=== PATIENT | male | born 1975 | race Two or more races ===

== ENCOUNTER 2021-11-20 21:23 | Inpatient (IN) | payer MEDICARE, OTHER ==
[~2021-11-20] VITALS: Ht 167.6 cm; Wt 75.3 kg
[2021-11-21 00:15] VITALS: BP 116/68
[2021-11-21 00:30] VITALS: BP 116/68
[2021-11-21] MEDS ORDERED: CEFE1VIA3 IV (00:41)
[2021-11-21] MEDS ORDERED: VANC1.5P36 IV (00:41)
[2021-11-21] MEDS ORDERED: ACETAMINOPHEN 325 MG TABLET PO PRN (01:00)
[2021-11-21] MEDS ORDERED: Z GUARD REMEDY 4 OZ OINT TP PRN (01:00)
[2021-11-21] MEDS ORDERED: MORPHINE SULFATE INJ 2 MG/ML DISP.SYRIN IV PRN (01:00)
[2021-11-21] MEDS ORDERED: MAG HYDROX/AL HYDROX/SIMETH 30 ML UDC PO PRN (01:00)
[2021-11-21] MEDS ORDERED: ZOLPIDEM TARTRATE 5 MG TABLET PO PRN (01:00)
[2021-11-21] MEDS ORDERED: ONDANSETRON HCL/PF 4 MG/2 ML VIAL IVP PRN (01:00)
[2021-11-21] MEDS ORDERED: MAGNESIUM HYDROXIDE 30 ML UDC PO PRN (01:00)
[2021-11-21] MEDS: IV 1/2NS 1000 ML 1,000 ML IV PRN ×2 (03:13→17:55)
--- NOTE | 2021-11-21 03:44 | NUR ---
DIRECT ADMIT NOTES PT ARRIVED VIA TERESA @0013 WITH 2 insurance account manager. DIRECT ADMIT FROM [facility]. AOx4, ABLE TO MAKE NEEDS KNOWN. ON RA AND TOLERATING WELL. NO SOB NOTED. NO S/SX OF RESPIRATORY DISTRESS NOTED. IV ACCESS IN MILVIA MIDLINE, THAT PATIENT ARRIVED WITH. IV IS INTACT, PATENT AND FLUSHING WELL. TELE MONITOR DETECTS SINUS RHYTHM WITH RATE OF 83. SAFETY PRECAUTIONS IN PLACE: BED IN LOWEST, LOCKED POSITION, SIDERAILS UPx2, AND BRAKES ON. TABLE AND CALL LIGHT WITHIN REACH. WILL CONTINUE TO MONITOR.
[2021-11-21 06:21] LABS: BASOPHILS % (AUTO) 0.3 % (0.0-2.0); EOSINOPHILS % (AUTO) 2.2 % (0.0-6.0); HEMATOCRIT 27 % (39-51); HEMOGLOBIN 8.8 g/dL (13.5-17.5); LYMPHOCYTES # (AUTO) 1.1 K/uL (0.8-4.8); LYMPHOCYTES % (AUTO) 16.1 % (20.0-44.0); MEAN CORPUSCULAR HGB CONC 32 g/dl (31.0-36.0); MEAN CORPUSCULAR VOLUME 85 fL (80-96); MONOCYTES # (AUTO) 0.6 K/uL (0.1-1.30); MONOCYTES % (AUTO) 8.3 % (2.0-12.0); NEUTROPHILS # (AUTO) 5.1 K/uL (1.8-8.9); NEUTROPHILS % (AUTO) 73.1 % (43.0-81.0); PLATELET COUNT (AUTO) 515 K/uL (150-450)
--- NOTE | 2021-11-21 06:56 | NUR ---
RN CLOSING NOTES PT IN BED, ASLEEP, AWAKENS TO VERBAL STIMULI.AOx4, ABLE TO MAKE NEEDS KNOWN. ON RA AND TOLERATING WELL. NO SOB NOTED. NO S/SX OF RESPIRATORY DISTRESS NOTED. IV ACCESS IN MILVIA MIDLINE, THAT PATIENT ARRIVED WITH. IV IS INTACT, PATENT AND FLUSHING WELL. TELE MONITOR DETECTS SINUS RHYTHM WITH RATE OF 83. ALL NEEDS MET. PT KEPT CLEAN AND DRY. SAFETY PRECAUTIONS IN PLACE: BED IN LOWEST, LOCKED POSITION, SIDERAILS UPx2, AND BRAKES ON. TABLE AND CALL LIGHT WITHIN REACH. WILL ENDORSE TO ONCOMING SHIFT FOR LAINE.
--- NOTE | 2021-11-21 07:30 | NUR ---
BUYER PLANNER OPENING NOTE PATIENT IS IN BED WITH EYES CLOSED, EASY TO AROUSE. A/O X 4. NO S/SX OF ACUTE DISTRESS NOTED. NO SOB. BREATHING IS EVEN AND UNLABORED, TOLERATING WELL ON ROOM AIR. PT WITH EXTERNAL VAULT TELLER WITH READING OF SINUS RHYTHM 83. IV ACCESS MILVIA MIDLINE PATENT AND INTACT 1/2 NS RUNNING @75MLS/HR. SAFETY MEASURES IN PLACE WITH BED LOCKED AT LOWEST POSITION AND SIDE RAILS UP X2. CALL LIGHT IS WITHIN REACH. WILL CONTINUE TO MONITOR PATIENT THROUGHOUT SHIFT.
[2021-11-21 07:49] LABS: ALBUMIN 1.8 g/dL (3.4-5.0); BILIRUBIN,TOTAL 0.2 mg/dL (0.2-1.0); CALCIUM, SERUM 8.5 mg/dL (8.5-10.1); MAGNESIUM 2.7 mg/dL (1.8-2.4); PHOSPHORUS 3.8 mg/dL (2.5-4.9); POTASSIUM 5.3 mmol/L (3.5-5.1); TOTAL PROTEIN, SERUM 6.9 g/dL (6.4-8.2)
[2021-11-21 08:08] VITALS: BP 96/51
[2021-11-21 08:48] LABS: THYROID STIMULATING HORMONE 3.448 uIU/mL (0.358-3.74)
[2021-11-21] MEDS ORDERED: CEFEPIME 2 GM in IV D5W 100 ML IV SCH (09:00)
[2021-11-21] MEDS ORDERED: HEPARIN SODIUM, PORCINE 5000 UNITS/1 ML VIAL SQ SCH (09:00)
[2021-11-21] MEDS ORDERED: VANCOMYCIN 1.25 GM in IV D5W 250 ML IV ONE (09:00)
[2021-11-21] MEDS: CEFEPIME 2 GM in IV D5W 100 ML IV SCH ×2 (10:02→21:28)
[2021-11-21] MEDS ORDERED: MIDO2.5T PO (10:40)
[2021-11-21] MEDS ORDERED: ASCO-340 PO (10:40)
[2021-11-21] MEDS ORDERED: ERGO500093 PO (10:40)
[2021-11-21] MEDS ORDERED: MULT-24 PO (10:40)
[2021-11-21] MEDS ORDERED: HEPA50008 SQ (10:40)
[2021-11-21] MEDS ORDERED: ZINC50TA69 PO (10:40)
[2021-11-21] MEDS ORDERED: ACET-2605 PO (10:40)
--- NOTE | 2021-11-21 11:53 | NUR ---
WOUND CARE CONSULT: PT STATED THAT HE WOULD LIKE TO REST AT THIS TIME. REVIEWED CHART, NURSING DOCUMENTATION AND PHOTOS WHICH INDICATE MULTIPLE STAGE 4 PRESSURE ULCERS TO SACRUM AND BUTTOCKS AREAS WITH DRY WOUNDS TO LOWER EXTREMITIES, ALL PRESENT ON ADMISSION. SURGICAL AND DPM CONSULTS CALLED TO DR BOOGIE AND DR ESPINOZA. RECOMMENDATIONS MADE FOR SKIN PROTECTION. DISCUSSED WITH NURSING STAFF. FIRST STEP LOW AIRLOSS MATTRESS IS ON ORDER. MD IN AGREEMENT WITH PLAN OF CARE.
[2021-11-21 12:00] VITALS: BP 115/73
--- NOTE | 2021-11-21 13:06 | NUR ---
RN NOTE URINE COLLECTED VIA EPPERSON CATHETER PORT PER DR. ENCARNACION ORDER. SPECIMEN PLACED IN REFRIGERATOR. LAB NOTIFIED.
--- NOTE | 2021-11-21 14:41 | NUR ---
Olaf 313/1 consult for paraplegia and multiple stage 4 pressure ulcers. Pt. Is a 45-year-old male who demonstrates adequate insight to the reason for hospitalization. Pt. was oriented x4, alert, and cooperative. During interview, pt. was capable of following directions, made appropriate eye-contact, and appeared groomed. Pt.s speech was at a normal rate and pt.s mood was elevated. Pt. reported no hx of mental health, substance abuse, suicidal ideation, or homicidal ideation. Pt. denies auditory hallucinations, visual hallucinations, paranoia, or delusions. SW explored pt.s living situation. Per pt., he lives with his brother and nephew [[id number] [place] [address]]. Per EMR, pt. presents with stage 4 pressure ulcers butt and hip. Pt. stated that his nephew, Tree, who is now his caregiver, takes care of pt. at home. Pt. stated that Tree is supportive. Per pt., he used to live in a SNF [[facility]] but did not like it. Pt. stated that he is too young to be living in a SNF. Pt. has no concerns and questions at this time. Plan: SW provided available resources and pt. denied. Upon discharge, per pt., he wants to return home [[id number] [place] [address]]. FELICIANO made an APS report due to self-neglect. APS Intake #[id number]
[2021-11-21] MEDS: PROSOURCE / PROSTAT (PYXIS) 30 ML UDC PO SCH ×2 (15:01→16:05)
[2021-11-21 16:00] VITALS: BP 98/62
[2021-11-21] MEDS: MIDODRINE HCL (5MG) 5 MG TABLET PO SCH (16:20)
--- NOTE | 2021-11-21 18:48 | NUR ---
REGULATORY ASSISTANT CLOSING NOTE PATIENT AWAKE IN BED. NO S/SX OF ACUTE DISTRESS NOTED. NO SOB. BREATHING IS EVEN AND UNLABORED, TOLERATING WELL ON ROOM AIR. PT WITH EXTERNAL FRENCH TEACHER WITH READING OF SINUS RHYTHM . IV ACCESS MILVIA MIDLINE PATENT AND INTACT WITH 1/2 NS RUNNING @75MLS/HR. SAFETY MEASURES MAINTAINED. ALL NEEDS MET THROUGHOUT SHIFT. WOUND TX DONE. CALL LIGHT IS WITHIN REACH. WILL ENDORSE CONTINUITY OF CARE TO ONCOMING SHIFT.
--- NOTE | 2021-11-21 19:42 | NUR ---
RN OPENING NOTES RECIEVED PT LYING IN BED, AWAKE. AOx4, ABLE TO MAKE NEEDS KNOWN. ON RA AND TOLERATING WELL. NO SOB NOTED. NO S/SX OF RESPIRATORY DISTRESS NOTED. IV ACCESS IN MILVIA MIDLINE RUNNING 1/2 NS @ 75 ML/HR. TELE MONITOR DETECTS SINUS RHYTHM WITH RATE OF 81. SAFETY PRECAUTIONS IN PLACE: BED IN LOWEST, LOCKED POSITION, SIDERAILS UPx2, AND BRAKES ON. TABLE AND CALL LIGHT WITHIN REACH. WILL CONTINUE TO MONITOR.
[2021-11-21 20:00] VITALS: BP 114/68
[2021-11-21] MEDS: VANCOMYCIN 1 GM in IV D5W 250 ML IV SCH (20:14)
[2021-11-21] MEDS: HEPARIN SODIUM, PORCINE 5000 UNITS/1 ML VIAL SQ SCH (21:29)
[2021-11-21] MEDS ORDERED: LIDOCAINE 1%-EPI 1:100,000 50 ML VIAL IJ ONE (23:00)
[2021-11-21] MEDS ORDERED: SILVER NITRATE APPLICATOR 1 EA BOX TP PRN (23:00)
[2021-11-22] VITALS: BP 114/69
[2021-11-22 04:00] VITALS: BP 109/71
[2021-11-22 04:20] LABS: BILIRUBIN,URINE NEGATIVE (NEGATIVE); LEUKOCYTE ESTERASE ,URINE TRACE (NEGATIVE); NITRITE, URINE NEGATIVE (NEGATIVE); PROTEIN,URINE NEGATIVE (NEGATIVE); UGLUCOSE NEGATIVE (NEGATIVE); UROBILINOGEN,URINE 0.2 EU/dL (0.2)
[2021-11-22 04:34] LABS: COLOR,URINE LIGHT YELLOW (YELLOW)
[2021-11-22] MEDS: IV 1/2NS 1000 ML 1,000 ML IV PRN ×2 (05:16→20:18)
--- NOTE | 2021-11-22 06:53 | NUR ---
RN CLOSING NOTES PT LYING IN BED, ASLEEP, AWAKENS TO VERBAL STIMULI. AOx4, ABLE TO MAKE NEEDS KNOWN. ON RA AND TOLERATING WELL. NO SOB NOTED. NO S/SX OF RESPIRATORY DISTRESS NOTED. IV ACCESS IN MILVIA MIDLINE RUNNING 1/2 NS @ 75 ML/HR. TELE MONITOR DETECTS SINUS RHYTHM WITH RATE OF 80-90. ALL NEEDS MET. PT KEPT CLEAN AND DRY. PT REFUSED COLOSTOMY CARE AND SHEET CHANGE. SAFETY PRECAUTIONS IN PLACE: BED IN LOWEST, LOCKED POSITION, SIDERAILS UPx2, AND BRAKES ON. TABLE AND CALL LIGHT WITHIN REACH. WILL ENDORSE TO ONCOMING SHIFT FOR LAINE.
[2021-11-22 07:13] LABS: CALCIUM, SERUM 8.5 mg/dL (8.5-10.1); CREATININE 0.8 mg/dL (0.6-1.3); POTASSIUM 4.6 mmol/L (3.5-5.1)
--- NOTE | 2021-11-22 07:15 | NUR ---
VICE PRESIDENT MARKETING & DEVELOPMENT OPENING NOTES RECEIVED PATIENT ON BED, ALERT AND ORIENTED X 4, ABLE TO MAKE NEEDS KNOWN. ON ROOM AIR WITH EQUAL AND UNLABORED BREATHING, TOLERATING WELL. NO SOB NOTED. NO S/SX OF RESPIRATORY DISTRESS NOTED. IV ACCESS IN MILVIA MIDLINE WITH NO SIGNS OF DISTRESS. WITH LEFT UPPER ARM MIDLINE WITH NS RUNNING AT 75 ML/HR INFUSING WELL. PATIENT ON TELE MONITOR DETECTS SINUS RHYTHM WITH RATE OF 80'S. SAFETY PRECAUTIONS IN PLACE WITH BED IN LOWEST, LOCKED POSITION, SIDERAILS UPx2, TABLE AND CALL LIGHT WITHIN REACH. WILL CONTINUE TO MONITOR.
[2021-11-22 07:40] LABS: BACTERIA,URINE None seen /HPF (None Seen); RBC,URINE 15-25 /HPF (0-2); SQUAMOUS EPITHELIAL CELL,UR None Seen /HPF (None Seen); WBC,URINE 15-25 /HPF (0-3)
--- NOTE | 2021-11-22 08:10 | NUR ---
REPLANTER NOTE PATIENT SEEN BY DR. ERAZO. WILL CONTINUE TO MONITOR PATIENT.
[2021-11-22] MEDS: ASCORBIC ACID 500 MG TABLET PO SCH (08:38)
[2021-11-22] MEDS: HEPARIN SODIUM, PORCINE 5000 UNITS/1 ML VIAL SQ SCH ×2 (08:38→21:20)
[2021-11-22] MEDS: MULTIVITAMINS,THERAGRAN 1 UDTAB TABLET PO SCH (08:38)
[2021-11-22] MEDS: MIDODRINE HCL (5MG) 5 MG TABLET PO SCH ×2 (08:39→17:48)
[2021-11-22] MEDS: PROSOURCE / PROSTAT (PYXIS) 30 ML UDC PO SCH ×3 (09:04→17:00)
[2021-11-22] MEDS: VANCOMYCIN 1 GM in IV D5W 250 ML IV SCH ×2 (09:05→21:18)
[2021-11-22 09:15] VITALS: BP 110/69
--- NOTE | 2021-11-22 09:55 | NUR ---
SNUFF GRINDER AND SCREENER NOTE PATIENT REFUSED PROSTAT AND REQUESTED ENSURE FROM THE DOCTOR. WITH MD ORDERS MADE AND CARRIED OUT. WILL CONTINUE TO MONITOR PATIENT.
[2021-11-22] MEDS: CEFEPIME 2 GM in IV D5W 100 ML IV SCH ×2 (10:40→22:20)
--- NOTE | 2021-11-22 12:10 | NUR ---
CHIEF PSYCHOLOGY NOTE WOUND TREATMENT/ DEBRIDEMENT DONE BY NICHELLE UMANA. PROCEDURE TOLERATED WELL. WILL CONTINUE TO MONITOR PATIENT.
[2021-11-22] MEDS: DAKINS QUARTER STRENGTH (0.125%) 480 ML BOTTLE TOP SCH (12:36)
[2021-11-22 16:29] VITALS: BP 125/74
--- NOTE | 2021-11-22 18:46 | NUR ---
LOOM FIXER APPRENTICE CLOSING NOTES RECEIVED PATIENT ON BED, ALERT AND ORIENTED X 4, ABLE TO MAKE NEEDS KNOWN. ON ROOM AIR WITH EQUAL AND UNLABORED BREATHING, TOLERATING WELL. NO SOB NOTED. NO S/SX OF RESPIRATORY DISTRESS NOTED. IV ACCESS IN MILVIA MIDLINE WITH NO SIGNS OF DISTRESS. WITH LEFT UPPER ARM MIDLINE WITH NS RUNNING AT 75 ML/HR INFUSING WELL. PATIENT ON TELE MONITOR DETECTS SINUS RHYTHM WITH RATE OF 80'S. SAFETY PRECAUTIONS IN PLACE WITH BED IN LOWEST, LOCKED POSITION, SIDERAILS UPx2, TABLE AND CALL LIGHT WITHIN REACH. WILL ENDORSE PATIENT FOR CONTINUITY OF CARE.
--- NOTE | 2021-11-22 19:29 | NUR ---
RETAIL SUPPORT ASSOCIATE OPENING NOTES RECEIVED PATIENT IN BED, A/O X 4, ABLE TO MAKE NEEDS KNOWN. PT STABLE ON ROOM AIR. NO SOB OR S/S OF RESPIRATORY DISTRESS. ON EXTERNAL DROP COUNT ASSOCIATE READING SR 80 BPM IV ACCESS MILVIA MIDLINE, INTACT AND PATENT, RUNNING NS @ 75 ML/HR. SAFETY PRECAUTIONS IN PLACE. BED IN LOWEST LOCKED POSITION, HOB ELEVATED, SIDE RAILS UP x2, CALL LIGHT AND TABLE WITHIN REACH. WILL CONTINUE WITH PLAN OF CARE.
[2021-11-22 20:00] VITALS: BP 116/69
[2021-11-23] VITALS: BP 115/63
[2021-11-23 04:00] VITALS: BP 121/62
--- NOTE | 2021-11-23 05:02 | NUR ---
RN NOTE PT REFUSED LINEN CHANGE AND COLOSTOMY BAG CHANGE AT THIS TIME.
--- NOTE | 2021-11-23 06:39 | NUR ---
VICE PRESIDENT TAX CLOSING NOTES PATIENT AWAKE IN BED, A/O X 4, ABLE TO MAKE NEEDS KNOWN. PT STABLE ON ROOM AIR. NO SOB OR S/S OF RESPIRATORY DISTRESS. ON EXTERNAL WELL LOGGING OPERATOR MUD ANALYSIS READING SR-ST 80-108 BPM. IV ACCESS MILVIA MIDLINE, INTACT AND PATENT, RUNNING NS @ 75 ML/HR. COLOSTOMY BAD IN PLACE, PT REFUSED CHANGING. EPPERSON CATHETER IN PLACE DRAINING CLEAR YELLOW URINE, DRAINED 2200 ML THIS SHIFT. DRESSINGS C/D/I. ALL NEEDS MET AT THIS TIME. SAFETY PRECAUTIONS IN PLACE AT ALL TIMES. BED IN LOWEST LOCKED POSITION, HOB ELEVATED, SIDE RAILS UP x2, CALL LIGHT AND TABLE WITHIN REACH. WILL ENDORSE TO ONCOMING SHIFT FOR LAINE.
[2021-11-23 06:43] LABS: BASOPHILS % (AUTO) 0.2 % (0.0-2.0); EOSINOPHILS % (AUTO) 4.3 % (0.0-6.0); HEMATOCRIT 28 % (39-51); HEMOGLOBIN 9.1 g/dL (13.5-17.5); LYMPHOCYTES # (AUTO) 1.2 K/uL (0.8-4.8); LYMPHOCYTES % (AUTO) 13.5 % (20.0-44.0); MEAN CORPUSCULAR HGB CONC 32 g/dl (31.0-36.0); MEAN CORPUSCULAR VOLUME 85 fL (80-96); MONOCYTES % (AUTO) 11.2 % (2.0-12.0); NEUTROPHILS # (AUTO) 6.1 K/uL (1.8-8.9); NEUTROPHILS % (AUTO) 70.8 % (43.0-81.0); PLATELET COUNT (AUTO) 603 K/uL (150-450); RED BLOOD CELL COUNT(AUTO) 3.32 MIL/uL (4.5-6.0); WHITE BLOOD COUNT (AUTO) 8.6 K/uL (4.3-11.0)
--- NOTE | 2021-11-23 07:19 | NUR ---
RN OPENING NOTES- PATIENT IN BED, ASLEEP THOUGH AWAKENS EASILY, A/O X 4, ABLE TO MAKE NEEDS KNOWN. PT STABLE ON ROOM AIR. NO SOB OR S/S OF RESPIRATORY DISTRESS. ON EXTERNAL MEDICAL ONCOLOGIST READING SR 76 BPM. MILVIA MIDLINE, INTACT AND PATENT, RUNNING NS @ 75 ML/HR. SAFETY PRECAUTIONS IN PLACE. BED IN LOWEST LOCKED POSITION, HOB ELEVATED, SIDE RAILS UP x2, CALL LIGHT AND TABLE WITHIN REACH. MONITOR / ASSIST
[2021-11-23 07:51] LABS: CALCIUM, SERUM 8.8 mg/dL (8.5-10.1); CREATININE 0.6 mg/dL (0.6-1.3); POTASSIUM 4.7 mmol/L (3.5-5.1)
[2021-11-23 08:00] VITALS: BP 113/66
[2021-11-23] MEDS: ASCORBIC ACID 500 MG TABLET PO SCH (08:46)
[2021-11-23] MEDS: VANCOMYCIN 1 GM in IV D5W 250 ML IV SCH ×2 (08:46→20:46)
[2021-11-23] MEDS: MIDODRINE HCL (5MG) 5 MG TABLET PO SCH ×2 (08:47→17:00)
[2021-11-23] MEDS: MULTIVITAMINS,THERAGRAN 1 UDTAB TABLET PO SCH (08:47)
[2021-11-23] MEDS: HEPARIN SODIUM, PORCINE 5000 UNITS/1 ML VIAL SQ SCH ×2 (08:48→20:51)
[2021-11-23] MEDS: PROSOURCE / PROSTAT (PYXIS) 30 ML UDC PO SCH ×3 (08:50→17:00)
[2021-11-23] MEDS: DAKINS QUARTER STRENGTH (0.125%) 480 ML BOTTLE TOP SCH (09:01)
[2021-11-23] MEDS: CEFEPIME 2 GM in IV D5W 100 ML IV SCH ×2 (10:24→22:23)
[2021-11-23] MEDS: IV 1/2NS 1000 ML 1,000 ML IV PRN (11:37)
[2021-11-23 12:00] VITALS: BP 109/61
--- NOTE | 2021-11-23 14:00 | NUR ---
RN NOTE- WOUND CARE COMPLETED TO BLE PER ORDERS. TOLERATED WELL.
[2021-11-23 16:00] VITALS: BP 119/69
--- NOTE | 2021-11-23 19:15 | NUR ---
RN CLOSING NOTE- PATIENT IN BED, COLOSTOMY CHANGED, A/O X 4, ABLE TO MAKE NEEDS KNOWN. PT STABLE ON ROOM AIR. NO SOB OR S/S OF RESPIRATORY DISTRESS. ON EXTERNAL PAYROLL CLERK READING SR 80 BPM. MILVIA MIDLINE, INTACT AND PATENT, RUNNING NS @ 75 ML/HR. SAFETY PRECAUTIONS IN PLACE. BED IN LOWEST LOCKED POSITION, HOB ELEVATED, SIDE RAILS UP x2, CALL LIGHT AND TABLE WITHIN REACH. MONITOR / ASSIST
--- NOTE | 2021-11-23 19:50 | NUR ---
ASSEMBLY LOADER OPENING NOTE PATIENT AWAKE IN BED, ALERT/ORIENTED X 4, PT ABLE TO MAKE NEEDS KNOWN. PATIENT DENIES PAIN AT THIS TIME. PT STABLE ON RA, NO S/S OF DISTRESS OR SOB NOTED, BREATHING EVEN AND UNLABORED. PT ON EXTERNAL HORTICULTURE WORKER READING SINUS TACHY, HR: 110. LEFT UPPER ARM MIDLINE INTACT AND RUNNING 1/2 NS @ 75 ML/HR. COLOSTOMY BAG IN PLACE. SAFETY MEASURES IN PLACE: CALL LIGHT WITHIN REACH, SIDE RAILS UP X 2, BED LOCKED IN LOW POSITION, HOB ELEVATED, BED ALARM ON. WILL CONTINUE TO MONITOR PATIENT
[2021-11-23 20:00] VITALS: BP 114/66
[2021-11-24] VITALS: BP 113/67
[2021-11-24] MEDS: IV 1/2NS 1000 ML 1,000 ML IV PRN ×2 (01:29→16:47)
[2021-11-24 05:00] VITALS: BP 107/58
--- NOTE | 2021-11-24 06:00 | NUR ---
SUPERVISOR ENGINE ASSEMBLY NOTE PATIENT REFUSED 4 AM VITAL SIGNS AND COLOSTOMY BAG CHANGE
[2021-11-24 06:41] LABS: BASOPHILS % (AUTO) 0.2 % (0.0-2.0); EOSINOPHILS % (AUTO) 3.9 % (0.0-6.0); HEMATOCRIT 29 % (39-51); HEMOGLOBIN 9.4 g/dL (13.5-17.5); LYMPHOCYTES # (AUTO) 1.3 K/uL (0.8-4.8); LYMPHOCYTES % (AUTO) 15.2 % (20.0-44.0); MEAN CORPUSCULAR HGB CONC 32 g/dl (31.0-36.0); MEAN CORPUSCULAR VOLUME 85 fL (80-96); MONOCYTES # (AUTO) 0.9 K/uL (0.1-1.30); MONOCYTES % (AUTO) 10.3 % (2.0-12.0); NEUTROPHILS % (AUTO) 70.4 % (43.0-81.0); PLATELET COUNT (AUTO) 652 K/uL (150-450); RED BLOOD CELL COUNT(AUTO) 3.47 MIL/uL (4.5-6.0); WHITE BLOOD COUNT (AUTO) 8.5 K/uL (4.3-11.0)
--- NOTE | 2021-11-24 07:02 | NUR ---
INTERIOR MECHANIC CLOSING NOTES PATIENT SLEEPING IN BED, NO SIGNIFICANT CHANGES THROUGHOUT SHIFT. PT STABLE ON RA, NO S/S OF DISTRESS OR SOB NOTED, BREATHING EVEN AND UNLABORED. PT ON EXTERNAL BOILER WATER TESTER READING SINUS RHYTHM, HR: 87. LEFT UPPER ARM MIDLINE INTACT AND INFUSING 1/2 NS @ 75 ML/HR. EPPERSON CATH IN PLACE AND DRAINING CLEAR YELLOW URINE, OUTPUT OF 800 ML. COLOSTOMY BACK IN PLACE. SAFETY MEASURES IN PLACE: CALL LIGHT WITHIN REACH, SIDE RAILS UP X 2, BED LOCKED IN LOW POSITION, HOB ELEVATED, BED ALARM ON. WILL ENDORSE TO DAY SHIFT NURSE FOR CONTINUITY OF CARE
[2021-11-24 07:05] LABS: CALCIUM, SERUM 8.9 mg/dL (8.5-10.1); CREATININE 0.6 mg/dL (0.6-1.3); POTASSIUM 4.3 mmol/L (3.5-5.1)
--- NOTE | 2021-11-24 07:26 | NUR ---
BRAND DEVELOPMENT MANAGER OPENING NOTES RECEIVED PATIENT ASLEEP IN BED, EASILY AWAKENS. PT IS A/O X4, ABLE TO MAKE NEEDS KNOWN, DENIES PAIN OR ANY DISCOMFORTS AT THIS TIME. ON ROOM AIR, BREATHING EVENLY AND UNLABORED. MILVIA MIDLINE PATENT AND INTACT WITH IVF OF NS @75ML/HR INFUSING WELL. ON TELE MONITORING WITH CURRENT READING OF NSR , HR 97, NO C/O CARDIAC DISTRESS VOICED AT THIS TIME. COLOSTOMY IN PLACE, NO STOOLS NOTED AT THIS TIME. EPPERSON CATHETER IN PLACE DRAINING CLEAR YELLOW URINE VIA GRAVITY TO BEDSIDE DRAINAGE BAG. SAFETY AND FALL MEASURES IN PLACE: BED ALARM ON, BED IN LOWEST LOCKED POSITION, SIDE-RAILS UP X2 AND CALL LIGHT WITHIN REACH. WILL CONTINUE TO MONITOR PT ACCORDINGLY.
[2021-11-24 08:00] VITALS: BP 129/67
[2021-11-24] MEDS: MULTIVITAMINS,THERAGRAN 1 UDTAB TABLET PO SCH (08:36)
[2021-11-24] MEDS: MIDODRINE HCL (5MG) 5 MG TABLET PO SCH ×2 (08:38→16:16)
[2021-11-24] MEDS: VANCOMYCIN 1 GM in IV D5W 250 ML IV SCH (08:38)
[2021-11-24] MEDS: ASCORBIC ACID 500 MG TABLET PO SCH (08:38)
[2021-11-24] MEDS: HEPARIN SODIUM, PORCINE 5000 UNITS/1 ML VIAL SQ SCH ×2 (08:39→21:40)
[2021-11-24] MEDS: DAKINS QUARTER STRENGTH (0.125%) 480 ML BOTTLE TOP SCH (08:40)
[2021-11-24] MEDS: PROSOURCE / PROSTAT (PYXIS) 30 ML UDC PO SCH (08:44)
[2021-11-24] MEDS: CEFEPIME 2 GM in IV D5W 100 ML IV SCH (09:49)
[2021-11-24] MEDS: ENSURE ENLIVE 237 ML LIQUID (VANILLA) PO SCH ×2 (13:00→17:13)
[2021-11-24 16:00] VITALS: BP 107/62
--- NOTE | 2021-11-24 18:53 | NUR ---
SECOND BAKER CLOSING NOTES PATIENT AWAKE AND WATCHING TV IN BED AT THIS TIME. A/O X4, ABLE TO MAKE NEEDS KNOWN. ON ROOM AIR, BREATHING EVENLY AND UNLABORED. MILVIA MIDLINE PATENT AND INTACT WITH IVF OF 1/2NS @75ML/HR INFUSING WELL. ON TELE MONITORING WITH CURRENT READING OF NSR-ST , HR 80-110 DURING SHIFT, NO C/O CARDIAC DISTRESS VOICED. COLOSTOMY IN PLACE, STOOLS NOTED SOFT BROWNISH CONSISTENCY. EPPERSON CATHETER IN PLACE DRAINING CLEAR YELLOW URINE VIA GRAVITY TO BEDSIDE DRAINAGE BAG, EPPERSON CARE DONE. ALL NEEDS AND CARE PROVIDED WELL. SAFETY AND FALL MEASURES KEPT IN PLACED: BED ALARM ON, BED IN LOWEST LOCKED POSITION, SIDE-RAILS UP X2 AND CALL LIGHT WITHIN REACH. WILL ENDORSE LAINE TO DIRECTOR OF ORTHOPEDICS NURSE.
--- NOTE | 2021-11-24 19:20 | NUR ---
TELE/RN OPENING NOTE RECEIVED PATIENT RESTING IN BED. AWAKE, ALERT AND ORIENTED X 4. ABLE TO MAKE NEEDS KNOWN. DENIES PAIN AT THIS TIME. CONTINUES ON ROOM AIR WITH NO S/SX OF RESPIRATORY DISTRESS NOTED. IV ACCESS TO RIGHT UPPER ARM MIDLINE #18G INTACT AND PATENT. CONTINUES ON IVF. EPPERSON CATHETER IN PLACE DRAINING CLEAR, YELLOW URINE. COLOSTOMY INTACT - PATIENT STATES HE WILL NOTIFY NURSING WHEN IT NEEDS TO BE EMPTIED. MULTIPLE WOUNDS NOTED WITH DRESSINGS CLEAN, DRY AND INTACT. TELE MONITOR IN PLACE WITH CURRENT READING SR/ST. CALL LIGHT WITHIN REACH. ASPIRATION, FALL AND SAFETY PRECAUTIONS MAINTAINED. WILL CONTINUE TO MONITOR.
[2021-11-24 20:00] VITALS: BP 124/68
[2021-11-25] VITALS: BP 100/61
[2021-11-25 04:00] VITALS: BP 96/52
[2021-11-25] MEDS: IV 1/2NS 1000 ML 1,000 ML IV PRN ×2 (06:13→19:52)
--- NOTE | 2021-11-25 06:20 | NUR ---
TELE/RN CLOSING NOTE PATIENT CURRENTLY SLEEPING IN BED. ALERT AND ORIENTED X 4. ABLE TO MAKE NEEDS KNOWN. DENIES PAIN AT THIS TIME. CONTINUES ON ROOM AIR WITH NO S/SX OF RESPIRATORY DISTRESS NOTED. IV ACCESS TO RIGHT UPPER ARM MIDLINE #18G INTACT AND PATENT. CONTINUES ON IVF 1/ NS @ 75ML/HR. EPPERSON CATHETER IN PLACE DRAINING CLEAR, YELLOW URINE. OUTPUT THIS SHIFT IS 2200ML. COLOSTOMY INTACT - PATIENT STATES HE WILL NOTIFY NURSING WHEN IT NEEDS TO BE EMPTIED. MULTIPLE WOUNDS NOTED WITH DRESSINGS CLEAN, DRY AND INTACT. TELE MONITOR IN PLACE WITH CURRENT READING ST HR 102. CALL LIGHT WITHIN REACH. ASPIRATION, FALL AND SAFETY PRECAUTIONS MAINTAINED. WILL ENDORSE PLAN OF CARE TO ONCOMING SHIFT.
[2021-11-25 07:00] LABS: BASOPHILS % (AUTO) 0.4 % (0.0-2.0); EOSINOPHILS % (AUTO) 3.7 % (0.0-6.0); HEMATOCRIT 28 % (39-51); HEMOGLOBIN 9.4 g/dL (13.5-17.5); LYMPHOCYTES # (AUTO) 1.3 K/uL (0.8-4.8); LYMPHOCYTES % (AUTO) 14.4 % (20.0-44.0); MEAN CORPUSCULAR HGB CONC 33 g/dl (31.0-36.0); MEAN CORPUSCULAR VOLUME 84 fL (80-96); MONOCYTES # (AUTO) 0.9 K/uL (0.1-1.30); MONOCYTES % (AUTO) 9.6 % (2.0-12.0); NEUTROPHILS # (AUTO) 6.6 K/uL (1.8-8.9); NEUTROPHILS % (AUTO) 71.9 % (43.0-81.0); PLATELET COUNT (AUTO) 666 K/uL (150-450); RED BLOOD CELL COUNT(AUTO) 3.37 MIL/uL (4.5-6.0); WHITE BLOOD COUNT (AUTO) 9.2 K/uL (4.3-11.0)
[2021-11-25 07:31] LABS: CREATININE 0.6 mg/dL (0.6-1.3); POTASSIUM 4.2 mmol/L (3.5-5.1)
--- NOTE | 2021-11-25 08:15 | NUR ---
MS RN OPENING NOTES RECEIVED PATIENT LYING IN BED WITH EYES CLOSED. EASY TO AROUSE. A/O X4. NOT IN APPARENT DISTRESS. NO C/O PAIN @ THIS TIME. TOLERATING ROOM AIR WELL. HAS LEFT UPPER ARM MIDLINE #18G WITH 1/2 NS RUNNING @ 75 ML/HR. EPPERSON CATHETER DRAINING CLEAR AND YELLOW URINE. SAFETY PRECAUTIONS IN PLACED. WILL CONTINUE PLAN OF CARE.
[2021-11-25 08:32] VITALS: BP 99/58
[2021-11-25] MEDS: ENSURE ENLIVE 237 ML LIQUID (VANILLA) PO SCH ×2 (08:42→17:37)
[2021-11-25] MEDS ORDERED: ERGOCALCIFEROL (VITAMIN D 2) 50,000 UNIT CAPSULE PO SCH (09:00)
[2021-11-25] MEDS: MIDODRINE HCL (5MG) 5 MG TABLET PO SCH ×2 (09:37→17:40)
[2021-11-25] MEDS: ASCORBIC ACID 500 MG TABLET PO SCH (09:37)
[2021-11-25] MEDS: MULTIVITAMINS,THERAGRAN 1 UDTAB TABLET PO SCH (09:37)
[2021-11-25] MEDS: DAKINS QUARTER STRENGTH (0.125%) 480 ML BOTTLE TOP SCH (09:38)
[2021-11-25] MEDS: HEPARIN SODIUM, PORCINE 5000 UNITS/1 ML VIAL SQ SCH ×2 (09:39→20:36)
[2021-11-25 12:45] VITALS: BP 112/61
[2021-11-25 16:50] VITALS: BP 117/61
--- NOTE | 2021-11-25 16:51 | NUR ---
HOSPICE BEREAVEMENT COORDINATOR NOTES SEEN AND EXAMINED BY REMI LOPEZ. WOUND CLEANED AND PACKED WITH DAKIN'S SOLUTION. COVERED WITH DSG, FOAM.
--- NOTE | 2021-11-25 16:52 | NUR ---
RADIAL ARM SAW OPERATOR NOTES EPPERSON CATHETER CARE DONE. URINE BAG EMPTIED WITH 1200 CC OUTPUT. COLOSTOMY CARE RENDERED. COLOSTOMY BAG CHANGED.
--- NOTE | 2021-11-25 19:20 | NUR ---
STEEL ANALYST CLOSING NOTES PATIENT IN BED REST, A/O X4. STABLE ON ROOM AIR. NO SOB OR . HAS LEFT UPPER ARM MIDLINE WITH 1/2 NS RUNNING @ 75 ML/HR. FLUSHING, PATENT AND INTACT. ALL NEEDS ATTENDED. KEPT DRY AND COMFORTABLE. SAFETY PRECAUTIONS IN PLACED: BED LOW AND LOCKED, SIDE RAILS UP X3, CALL LIGHT WITHIN REACH.
--- NOTE | 2021-11-25 19:45 | NUR ---
MESSAGING ARCHITECT OPENING NOTES PATIENT IN BED REST, A/O X4. STABLE ON ROOM AIR. NO SOB OR . HAS LEFT UPPER ARM MIDLINE WITH 1/2 NS RUNNING @ 75 ML/HR. FLUSHING, PATENT AND INTACT. ALL NEEDS ATTENDED AT THIS TIME. KEPT DRY AND COMFORTABLE. SAFETY PRECAUTIONS IN PLACED: BED LOW AND LOCKED, SIDE RAILS UP X3, CALL LIGHT WITHIN REACH. WILL CONTINUE TO MONITOR
[2021-11-25 20:00] VITALS: BP 137/72
[2021-11-26] VITALS: BP 105/51
[2021-11-26 04:00] VITALS: BP 109/66
[2021-11-26 06:48] LABS: BASOPHILS % (AUTO) 0.5 % (0.0-2.0); EOSINOPHILS % (AUTO) 4.2 % (0.0-6.0); HEMATOCRIT 28 % (39-51); LYMPHOCYTES # (AUTO) 1.4 K/uL (0.8-4.8); LYMPHOCYTES % (AUTO) 17.2 % (20.0-44.0); MEAN CORPUSCULAR HGB CONC 33 g/dl (31.0-36.0); MEAN CORPUSCULAR VOLUME 85 fL (80-96); MONOCYTES # (AUTO) 0.9 K/uL (0.1-1.30); MONOCYTES % (AUTO) 11.3 % (2.0-12.0); NEUTROPHILS # (AUTO) 5.3 K/uL (1.8-8.9); NEUTROPHILS % (AUTO) 66.8 % (43.0-81.0); PLATELET COUNT (AUTO) 615 K/uL (150-450); RED BLOOD CELL COUNT(AUTO) 3.26 MIL/uL (4.5-6.0)
--- NOTE | 2021-11-26 06:50 | NUR ---
EXPERIMENTAL PHYSICIST CLOSING NOTES PATIENT IN BED REST, A/O X4. STABLE ON ROOM AIR. NO SOB . HAS LEFT UPPER ARM MIDLINE WITH 1/2 NS RUNNING @ 75 ML/HR. FLUSHING, PATENT AND INTACT. ALL NEEDS ATTENDED THROUGHOUT THE SHIFT KEPT DRY AND COMFORTABLE. SAFETY PRECAUTIONS IN PLACED: BED LOW AND LOCKED, SIDE RAILS UP X3, CALL LIGHT WITHIN REACH. WILL ENDORSE CARE TO DAY SHIFT NURSE.
[2021-11-26 07:10] LABS: CREATININE 0.7 mg/dL (0.6-1.3); POTASSIUM 4.3 mmol/L (3.5-5.1)
--- NOTE | 2021-11-26 07:25 | NUR ---
FOUNDER OPENING NOTES RECEIVED PATIENT IN BED, ASLEEP, EASILY AROUSED. A/O X4, NO SIGNS OF ACUTE DISTRESS NOTED. ON ROOM AIR, NO SOB NOTED. DENIES ANY PAIN OR DISCOMFORT. ON TELE MONITOR SHOWING SR @62. WITH IV ACCESS ON LEFT UPPER ARM MIDLINE, INTACT AND PATENT, 1/2 NS @75ML/HR RUNNING. F/C INTACT CONNECTED TO DRAINAGE BAG WITH CLEAR YELLOW URINE. COLOSTOMY INTACT. SAFETY MEASURES IN PLACE. BED IN LOWEST LOCKED POSITION, SR UP X2, CALL LIGHT PLACED WITHIN EASY REACH. WILL CONTINUE TO MONITOR PATIENT.
[2021-11-26] MEDS: ENSURE ENLIVE 237 ML LIQUID (VANILLA) PO SCH ×2 (08:31→17:08)
[2021-11-26] MEDS: MIDODRINE HCL (5MG) 5 MG TABLET PO SCH ×2 (08:42→17:08)
[2021-11-26] MEDS: MULTIVITAMINS,THERAGRAN 1 UDTAB TABLET PO SCH (08:42)
[2021-11-26] MEDS: ASCORBIC ACID 500 MG TABLET PO SCH (08:42)
[2021-11-26] MEDS: HEPARIN SODIUM, PORCINE 5000 UNITS/1 ML VIAL SQ SCH ×2 (08:48→20:32)
[2021-11-26] MEDS: DAKINS QUARTER STRENGTH (0.125%) 480 ML BOTTLE TOP SCH (08:49)
[2021-11-26] MEDS: IV 1/2NS 1000 ML 1,000 ML IV PRN ×2 (10:05→22:58)
--- NOTE | 2021-11-26 18:52 | NUR ---
MS RN CLOSING NOTES PATIENT RESTING IN BED. AWAKE, A/O X4, NO SIGNS OF ACUTE DISTRESS NOTED. REMAINS ON ROOM AIR, NO SOB NOTED. DENIES ANY PAIN OR DISCOMFORT. OFFERED NO COMPLAINTS THIS SHIFT. IV ACCESS ON LEFT UPPER ARM MIDLINE, INTACT AND PATENT, 1/2 NS @75ML/HR RUNNING. F/C INTACT CONNECTED TO DRAINAGE BAG WITH CLEAR YELLOW URINE. COLOSTOMY INTACT, HAD SOFT BROWN STOOL. ALL DUE MEDS GIVEN. WOUND TREATMENT DONE ORDERED. SAFETY MEASURES IN PLACE. BED IN LOWEST LOCKED POSITION, SR UP X2, CALL LIGHT PLACED WITHIN EASY REACH. WILL ENDORSE TO NEXT SHIFT.
--- NOTE | 2021-11-26 19:15 | NUR ---
MS RN OPENING NOTES RECEIVED PATIENT LAYING AWAKE IN BED. A/O X4. PATIENT WITH REGULAR AND UNLABORED BREATHING ON ROOM AIR TOLERATED WELL. NO SIGNS OR SYMPTOMS OF DISTRESS NOTED AT THIS TIME. NO COMPLAINS OF PAIN OR DISCOMFORT AT THIS TIME. IV ACCESS MILVIA MIDLINE INFUSING 1/2 NS @ 75 ML/HR. IV ACCESS PATENT AND INTACT. SAFETY PRECAUTIONS ENFORCED WITH BED LOCKED AND AT LOWEST POSITION. CALL LIGHT WITHIN REACH AT ALL TIMES. WILL CONTINUE TO MONITOR PATIENT.
[2021-11-26 20:00] VITALS: BP 118/66
--- NOTE | 2021-11-27 06:44 | NUR ---
MS RN CLOSING NOTES PATIENT STILL LAYING AWAKE IN BED. A/O X4. PATIENT WITH REGULAR AND UNLABORED BREATHING ON ROOM AIR TOLERATED WELL. NO SIGNS OR SYMPTOMS OF DISTRESS NOTED AT THIS TIME. NO COMPLAINS OF PAIN OR DISCOMFORT AT THIS TIME. IV ACCESS MILVIA MIDLINE INFUSING 1/2 NS @ 75 ML/HR. IV ACCESS PATENT AND INTACT. SAFETY PRECAUTIONS ENFORCED WITH BED LOCKED AND AT LOWEST POSITION. CALL LIGHT WITHIN REACH AT ALL TIMES. WILL ENDORSE CONTINUITY OF CARE TO DAY SHIFT NURSE.
[2021-11-27 07:07] LABS: BASOPHILS % (AUTO) 0.5 % (0.0-2.0); EOSINOPHILS % (AUTO) 2.6 % (0.0-6.0); HEMATOCRIT 28 % (39-51); HEMOGLOBIN 9.2 g/dL (13.5-17.5); LYMPHOCYTES # (AUTO) 1.4 K/uL (0.8-4.8); LYMPHOCYTES % (AUTO) 15.5 % (20.0-44.0); MEAN CORPUSCULAR HGB CONC 33 g/dl (31.0-36.0); MEAN CORPUSCULAR VOLUME 83 fL (80-96); MONOCYTES # (AUTO) 0.8 K/uL (0.1-1.30); NEUTROPHILS # (AUTO) 6.5 K/uL (1.8-8.9); NEUTROPHILS % (AUTO) 72.4 % (43.0-81.0); PLATELET COUNT (AUTO) 631 K/uL (150-450); RED BLOOD CELL COUNT(AUTO) 3.33 MIL/uL (4.5-6.0)
[2021-11-27 07:11] LABS: CALCIUM, SERUM 9.1 mg/dL (8.5-10.1); CREATININE 0.6 mg/dL (0.6-1.3); POTASSIUM 4.3 mmol/L (3.5-5.1)
--- NOTE | 2021-11-27 07:30 | NUR ---
MS RN OPENING NOTES RECEIVED PATIENT IN BED, AWAKE, A/O X4. ON ROOM AIR TOLERATED WELL. NO SIGNS OR SYMPTOMS OF DISTRESS NOTED AT THIS TIME. NO COMPLAINS OF PAIN OR DISCOMFORT AT THIS TIME. IV ACCESS MILVIA MIDLINE INFUSING 1/2 NS @ 75 ML/HR. IV ACCESS PATENT AND INTACT, NOP S/SX OF INFILTRATION NOTED. SAFETY PRECAUTIONS ENFORCED WITH BED LOCKED AND AT LOWEST POSITION. CALL LIGHT WITHIN REACH AT ALL TIMES. WILL CONTINUE TO MONITOR PATIENT ACCORDINGLY.
[2021-11-27 08:00] VITALS: BP 115/67
[2021-11-27] MEDS: ENSURE ENLIVE 237 ML LIQUID (VANILLA) PO SCH ×2 (08:18→17:54)
[2021-11-27] MEDS: MIDODRINE HCL (5MG) 5 MG TABLET PO SCH ×2 (08:31→17:40)
[2021-11-27] MEDS: ASCORBIC ACID 500 MG TABLET PO SCH (08:31)
[2021-11-27] MEDS: MULTIVITAMINS,THERAGRAN 1 UDTAB TABLET PO SCH (08:31)
[2021-11-27] MEDS: HEPARIN SODIUM, PORCINE 5000 UNITS/1 ML VIAL SQ SCH ×2 (08:32→22:15)
[2021-11-27] MEDS: DAKINS QUARTER STRENGTH (0.125%) 480 ML BOTTLE TOP SCH (09:02)
[2021-11-27] MEDS: IV 1/2NS 1000 ML 1,000 ML IV PRN (12:34)
[2021-11-27 16:00] VITALS: BP 102/66
--- NOTE | 2021-11-27 18:42 | NUR ---
MS RN CLOSING NOTES PATIENT IN BED, AWAKE, A/O X4. ON ROOM AIR TOLERATED WELL. NO SIGNS OR SYMPTOMS OF DISTRESS NOTED AT THIS TIME. NO COMPLAINS OF PAIN OR DISCOMFORT AT THIS TIME. IV ACCESS MILVIA MIDLINE INFUSING 1/2 NS @ 75 ML/HR. IV ACCESS PATENT AND INTACT, NO S/SX OF INFILTRATION NOTED. SAFETY PRECAUTIONS ENFORCED WITH BED LOCKED AND AT LOWEST POSITION. CALL LIGHT WITHIN REACH AT ALL TIMES. WOUND CARE DONE ORDERED. ALL NEEDS ATTENDED AND MET. DUE MEDS GIVEN ORDERED. WILL ENDORSE TO ONCOMING SHIFT FOR LAINE.
[2021-11-27 20:00] VITALS: BP 99/80
--- NOTE | 2021-11-28 07:25 | NUR ---
RN OPENING NOTE- PATIENT IN BED, ASLEEP THOUGH EASILY AWAKENED, A/O X4. ON ROOM AIR / TOLERATING WELL. NO SIGNS OR SYMPTOMS OF DISTRESS NOTED AT THIS TIME. NO COMPLAINT OF PAIN OR DISCOMFORT AT THIS TIME. IV ACCESS MILVIA MIDLINE INFUSING 1/2 NS @ 75 ML/HR. IV ACCESS PATENT AND INTACT, NO S/SX OF INFILTRATION NOTED. SAFETY PRECAUTIONS ENFORCED WITH BED LOCKED AND AT LOWEST POSITION. CALL LIGHT WITHIN REACH AT ALL TIMES. MONITOR / ASSIST
[2021-11-28] MEDS: IV 1/2NS 1000 ML 1,000 ML IV PRN ×2 (07:31→20:54)
[2021-11-28 07:38] LABS: BASOPHILS % (AUTO) 0.4 % (0.0-2.0); HEMATOCRIT 29 % (39-51); HEMOGLOBIN 9.4 g/dL (13.5-17.5); LYMPHOCYTES # (AUTO) 1.3 K/uL (0.8-4.8); MEAN CORPUSCULAR HGB CONC 32 g/dl (31.0-36.0); MEAN CORPUSCULAR VOLUME 83 fL (80-96); MONOCYTES # (AUTO) 0.8 K/uL (0.1-1.30); MONOCYTES % (AUTO) 8.8 % (2.0-12.0); NEUTROPHILS # (AUTO) 6.8 K/uL (1.8-8.9); NEUTROPHILS % (AUTO) 74.8 % (43.0-81.0); PLATELET COUNT (AUTO) 654 K/uL (150-450)
[2021-11-28 07:53] VITALS: BP 105/66
[2021-11-28 08:05] LABS: CALCIUM, SERUM 9.5 mg/dL (8.5-10.1); CREATININE 0.6 mg/dL (0.6-1.3); POTASSIUM 4.2 mmol/L (3.5-5.1)
[2021-11-28] MEDS: HEPARIN SODIUM, PORCINE 5000 UNITS/1 ML VIAL SQ SCH (08:21)
[2021-11-28] MEDS: MULTIVITAMINS,THERAGRAN 1 UDTAB TABLET PO SCH (08:23)
[2021-11-28] MEDS: ASCORBIC ACID 500 MG TABLET PO SCH (08:23)
[2021-11-28] MEDS: MIDODRINE HCL (5MG) 5 MG TABLET PO SCH ×2 (08:24→16:14)
[2021-11-28] MEDS: DAKINS QUARTER STRENGTH (0.125%) 480 ML BOTTLE TOP SCH (08:26)
[2021-11-28] MEDS: ENSURE ENLIVE 237 ML LIQUID (VANILLA) PO SCH ×2 (08:26→16:14)
--- NOTE | 2021-11-28 16:03 | NUR ---
RN NOTE-WOUND CARE COMPLETED TO BLE AND SACRAL WOUNDS PER ORDERS. TOLERATED WELL.
[2021-11-28 16:40] VITALS: BP 114/63
--- NOTE | 2021-11-28 17:00 | NUR ---
RN NOTE- NOTICED SEDIMENT ETC TO EPPERSON CATHETER AND PT STATES OF DISCOMFORT TO MEATUS. UA CX COLLECTED AND SENT TO LAB
[2021-11-28 18:23] LABS: BILIRUBIN,URINE NEGATIVE (NEGATIVE); COLOR,URINE YELLOW (YELLOW); LEUKOCYTE ESTERASE ,URINE SMALL (NEGATIVE); NITRITE, URINE NEGATIVE (NEGATIVE); PROTEIN,URINE 30 mg/dl (NEGATIVE); UGLUCOSE NEGATIVE (NEGATIVE); UROBILINOGEN,URINE 0.2 EU/dL (0.2)
[2021-11-28 19:17] LABS: BACTERIA,URINE 1+ /HPF (None Seen); YEAST,URINE Moderate /HPF (None Seen)
--- NOTE | 2021-11-28 19:45 | NUR ---
MS RN OPENING NOTE PATIENT AWAKE IN BED, ALERT/ORIENTED X 4, PT ABLE TO MAKE NEEDS KNOWN. PT STABLE ON RA, NO S/S OF DISTRESS OR SOB NOTED, BREATHING EVEN AND UNLABORED. MILVIA MIDLINE INTACT AND INFUSING 1/2 NS @ 75 ML/HR. COLOSTOMY BAG AND EPPERSON CATH IN PLACE, EPPERSON DRAINING YELLOW URINE. DRESSING ON BILATERAL HEELS AND LEFT CALF CLEAN, DRY AND INTACT. SAFETY MEASURES IN PLACE: CALL LIGHT WITHIN REACH, SIDE RAILS UP X 2, HOB ELEVATED, BED LOCKED IN LOW POSITION, BED ALARM ON. WILL CONTINUE TO MONITOR PATIENT
[2021-11-28 20:00] VITALS: BP 113/69
--- NOTE | 2021-11-28 22:57 | NUR ---
RN NOTE CHANGED PATIENT'S COLOSTOMY BAG
[2021-11-29 06:55] LABS: BASOPHILS % (AUTO) 0.4 % (0.0-2.0); EOSINOPHILS % (AUTO) 2.9 % (0.0-6.0); HEMATOCRIT 29 % (39-51); HEMOGLOBIN 9.4 g/dL (13.5-17.5); LYMPHOCYTES # (AUTO) 1.7 K/uL (0.8-4.8); LYMPHOCYTES % (AUTO) 18.4 % (20.0-44.0); MEAN CORPUSCULAR HGB CONC 32 g/dl (31.0-36.0); MEAN CORPUSCULAR VOLUME 84 fL (80-96); MONOCYTES % (AUTO) 10.8 % (2.0-12.0); NEUTROPHILS # (AUTO) 6.1 K/uL (1.8-8.9); NEUTROPHILS % (AUTO) 67.5 % (43.0-81.0); PLATELET COUNT (AUTO) 614 K/uL (150-450); RED BLOOD CELL COUNT(AUTO) 3.49 MIL/uL (4.5-6.0); WHITE BLOOD COUNT (AUTO) 9.1 K/uL (4.3-11.0)
[2021-11-29 07:12] LABS: CALCIUM, SERUM 9.1 mg/dL (8.5-10.1); CREATININE 0.6 mg/dL (0.6-1.3); MAGNESIUM 2.3 mg/dL (1.8-2.4); PHOSPHORUS 4.4 mg/dL (2.5-4.9); POTASSIUM 4.1 mmol/L (3.5-5.1)
--- NOTE | 2021-11-29 07:20 | NUR ---
MS RN OPENING NOTES RECEIVED PATIENT IN BED AWAKE, A/O X4. STABLE ON RA WITH NO S/SX OF RESPIRATORY DISTRESS NOTED. NO COMPLAINT OF PAIN VERBALIZED AT THIS TIME. MILVIA MIDLINE INTACT AND INFUSING 1/2 NS @ 75 ML/HR. COLOSTOMY BAG IN PLACE WITH SMALL BROWN STOOL IN BAG. EPPERSON CATHETER IN PLACE AND PATENT WITH YELLOW URINE DRAINING. PATIENT VERBALIZED PER HIS UNDERSTANDING OF PLAN OF CARE FOR THE DAY, "I WILL BE GOING HOME TODAY". SAFETY MEASURES IN PLACE: CALL LIGHT WITHIN REACH, SIDE RAILS UP X 2, HOB ELEVATED, BED LOCKED IN LOW POSITION, BED ALARM ON. WILL FOLLOW UP WITH PLAN OF CARE
--- NOTE | 2021-11-29 07:56 | NUR ---
MS RN CLOSING NOTE PATIENT SLEEPING IN BED, PT ABLE TO MAKE NEEDS KNOWN. PT STABLE ON RA, NO S/S OF DISTRESS OR SOB NOTED, BREATHING EVEN AND UNLABORED. MILVIA MIDLINE INTACT AND INFUSING 1/2 NS @ 75 ML/HR. COLOSTOMY BAG AND EPPERSON CATH IN PLACE, EPPERSON DRAINING YELLOW URINE. NO SIGNIFICANT CHANGES THROUGHOUT SHIFT. MEDICATIONS GIVEN ORDERED, PT NEEDS MET. SAFETY MEASURES IN PLACE: CALL LIGHT WITHIN REACH, SIDE RAILS UP X 2, HOB ELEVATED, BED LOCKED IN LOW POSITION, BED ALARM ON. ENDORSED TO DAY SHIFT NURSE FOR CONTINUITY OF CARE
[2021-11-29 08:46] VITALS: BP 108/64
[2021-11-29] MEDS: MIDODRINE HCL (5MG) 5 MG TABLET PO SCH (08:46)
[2021-11-29] MEDS: MULTIVITAMINS,THERAGRAN 1 UDTAB TABLET PO SCH (08:46)
[2021-11-29] MEDS: ASCORBIC ACID 500 MG TABLET PO SCH (08:46)
[2021-11-29] MEDS: ENSURE ENLIVE 237 ML LIQUID (VANILLA) PO SCH (08:47)
[2021-11-29] MEDS: DAKINS QUARTER STRENGTH (0.125%) 480 ML BOTTLE TOP SCH (09:00)
--- NOTE | 2021-11-29 09:48 | NUR ---
APS: FELICIANO received call from APS worker, Mina Babin [phone] asking if pt. was still here. FELICIANO notified Mina that pt. remains here and Mina stated he may visit the patient.
[2021-11-29 10:37] LABS: THYROID STIMULATING HORMONE 5.67 uIU/mL (0.358-3.74); URIC ACID 3.5 mg/dL (2.6-7.2)
--- NOTE | 2021-11-29 12:35 | NUR ---
[employer] NOTES PATIENT MEDICALLY STABLE AND CLEAR FOR DISCHARGE. DISCHARGE INSTRUCTIONS PROVIDED TO PATIENT. PATIENT ABLE TO VERBALIZE UNDERSTANDING OF TEACHING. EXIT CARE PACKET WAS PROVIDED FOR EDUCATIONAL REFERENCE. ALL BELONGINGS ACCOUNTED FOR AND DOCUMENTS SIGNED. WOUND CARE WAS PROVIDED FOR PATIENT PRIOR TO DISCHARGE, BUT PATIENT REFUSED TO HAVE PICTURES TAKEN OF WOUNDS. EPPERSON CATHETER, IV ACCESS AND ID BAND REMOVED. PATIENT LEFT HOSPITAL VIA HIS PERSONAL WHEELCHAIR, ACCOMPANIED BY BROTHER IN PRIVATE CAR.
== END 2021-11-29 12:30 | disposition home health service (06) | DRG 853 ==
LOC: TELE 11-21 00:08 → MED 11-26 10:51
PROVIDERS: ADMIT Nurse Practitioner Acute Care; ATTEND Nurse Practitioner Acute Care
PROC: 0KBP0ZZ Excision of Left Hip Muscle, Open Approach (ICD-10-PCS; principal; 2021-11-22)
PROC: 0KBN0ZZ Excision of Right Hip Muscle, Open Approach (ICD-10-PCS; 2021-11-22)
DX: A41.9 Sepsis, unspecified organism (principal); L89.224 Pressure ulcer of left hip, stage 4; L89.214 Pressure ulcer of right hip, stage 4; L89.314 Pressure ulcer of right buttock, stage 4; L89.154 Pressure ulcer of sacral region, stage 4; N17.0 Acute kidney failure with tubular necrosis; L03.116 Cellulitis of left lower limb; D68.59 Other primary thrombophilia; N13.6 Pyonephrosis; G82.20 Paraplegia, unspecified; E87.2 Acidosis; N39.0 Urinary tract infection, site not specified; E87.1 Hypo-osmolality and hyponatremia; Z87.440 Personal history of urinary (tract) infections; R65.20 Severe sepsis without septic shock; I25.10 Atherosclerotic heart disease of native coronary artery without angina pectoris; Z93.3 Colostomy status; Z88.0 Allergy status to penicillin; N31.9 Neuromuscular dysfunction of bladder, unspecified; D63.8 Anemia in other chronic diseases classified elsewhere; B96.89 Other specified bacterial agents as the cause of diseases classified elsewhere; W34.00XS Accidental discharge from unspecified firearms or gun, sequela; Z98.890 Other specified postprocedural states; L89.890 Pressure ulcer of other site, unstageable; L89.610 Pressure ulcer of right heel, unstageable; E86.1 Hypovolemia; N18.9 Chronic kidney disease, unspecified; E87.5 Hyperkalemia; S24.113S Complete lesion at T7-T10 level of thoracic spinal cord, sequela
CPT/HCPCS: 36415; 80048-TC; 80053-TC; 80061-TC; 80202-TC; 81001; 83540-TC; 83605-TC; 83735-TC; 84100-TC; 84300-TC; 84443-TC; 84550-TC; 85025-TC; 87040-TC; 87081-TC; 87086-TC; A6253; A6403; G0378; J0692; J1644; J3370; J3490; J7030; J7060